=== PATIENT | female | born 1970 | race Two or more races ===

== ENCOUNTER 2019-03-14 11:43 | Emergency (ER) | payer OTHER ==
[2019-03-14 11:47] VITALS: BP 144/97; TEMP 98.7; BMI 26.9
--- NOTE | 2019-03-14 12:08 | PDOC ---
History of Present Illness - General Chief Complaint: Headache Stated Complaint: HEADACHE Time Seen by Provider: 03/14/19 12:07 - History of Present Illness Initial Comments: 03/14/19 14:41 Chief complaint: Headache History of present illness: Patient has a long history of recurrent headaches was have been diagnosed as migraines, she is seen regularly by a neurologist in attendance the headache clinic at [facility]. She has taken her triptan without relief, and states that it is not been working recently. She is under considerable stress from work and her teenage son, and has not been sleeping well, waking up frequently in the middle of the night. She admits anxiety and sometimes feeling depressed, but has had no serious depressions in the past and denies ever having ideations of hurting herself or others. Review of systems: Denies visual or focal neurologic symptoms, unsteadiness of gait, chest pain, shortness of breath, abdominal pain, nausea, vomiting, diarrhea, urinary tract symptoms, vaginal bleeding or discharge. Remainder systems reviewed and negative Past medical history: Migraine headaches. Otherwise negative Social history: Works for the [employer], anxiety, minor depression , work and family stress as noted above. However, fully functional and has been working without interruption Family history: Reviewed and noncontributory including early coronary artery disease, metabolic disease including diabetes, neurologic diseases, and cancer Physical exam: Alert and oriented well-developed well-nourished no acute distress cooperative. Appears moderately anxious and stressed Afebrile, vital signs normal PERRLA, fundi benign with sharp disc margins and good central venous pulsations. ENT clear C2 to 12 intact. Strength full and symmetric. No focal sensory or motor deficits. Cerebellar function intact. Gait stable and unimpaired Neck supple without bruit mass or nodes Chest clear with full breath sounds bilaterally CV regular without murmur rub or gallop pulses full and symmetric no JVD or edema no bruits Abdomen soft nontender without organomegaly or mass Extremities no CCE Skin clear, no rash, adequate turgor and wet mucous membranes Impression: Chronic headache, exacerbated by recent stress, anxiety Plan: Analgesics, counseling, review relaxation techniques, refer back to her neurologist and headache clinic. Past History - Past Medical History Allergies/Adverse Reactions: Allergies Allergy/AdvReac Type Severity Reaction Status Date / Time No Known Allergies Allergy Verified 03/14/19 11:44 Home Medications: Ambulatory Orders Diclofenac Potassium 50 mg PO QID PRN #20 tablet 03/14/19 Naratriptan HCl [Amerge (Nf) -] 2.5 mg PO ASDIR 03/14/19 Nortriptyline HCl [Pamelor -] 10 mg PO HS 03/14/19 hydrOXYzine PAMOATE [Vistaril -] 25 - 50 mg PO QID PRN #20 capsule 03/14/19 COPD: No Other medical history: migraine headaches - Suicide/Smoking/Psychosocial Hx Smoking History: Never smoked Have you smoked in the past 12 months: No Information on smoking cessation initiated: No Hx Alcohol Use: No *Physical Exam - Vital Signs Last Vital Signs Temp Pulse Resp BP Pulse Ox 98.7 F 101 H 18 144/97 100 03/14/19 11:43 03/14/19 11:43 03/14/19 11:43 03/14/19 11:43 03/14/19 11:43 Medical Decision Making - Medical Decision Making 03/14/19 14:47 Patient is much improved with the administration of Toradol and Vistaril. Headache has resolved. She appears much less anxious, states that the tension in the back of her neck has relaxed, and she feels more calm. She will work on combating her stress, investigating relaxation techniques, exercise, meditation , and yogurt. She seems insightful and willing to investigate nonpharmacologic interventions. She agrees to see her neurologist and return to the headache clinic. Return to ER if symptoms worsen. Fully ambulatory and in no significant distress at discharge to follow-up as directed *DC/Admit/Observation/Transfer Diagnosis at time of Disposition: Headache Qualifiers: Headache type: other headache syndrome Qualified Code(s): G44.89 - Other headache syndrome - Discharge Dispostion Disposition: HOME Condition at time of disposition: Improved Decision to Admit order: No - Prescriptions Prescriptions: Diclofenac Potassium 50 mg PO QID PRN #20 tablet PRN Reason: Headache hydrOXYzine PAMOATE [Vistaril -] 25 - 50 mg PO QID PRN #20 capsule PRN Reason: Headache - Referrals Referrals: Remington Cardona MD [Staff Physician] - Mitul Key DO [Staff Physician] - - Patient Instructions Printed Discharge Instructions: DI for Migraine - Post Discharge Activity Forms/Work/School Notes: Back to Work
[2019-03-14] MEDS ORDERED: KETOROLAC TROMETHAMINE 60 MG/2 ML VIAL IM ONE (12:44)
[2019-03-14] MEDS ORDERED: hydrOXYzine PAMOATE 25 MG CAPSULE (FP) PO ONE ×2 (12:44→12:50)
[2019-03-14] MEDS ORDERED: KETOROLAC TROMETHAMINE 60 MG/2 ML VIAL ONE (12:50)
[2019-03-14 15:15] VITALS: PULSE 86
== END 2019-03-14 14:45 | disposition home or self-care (01) ==
LOC: FER 11:43
PROC: 3E0233Z Introduction of Anti-inflammatory into Muscle, Percutaneous Approach (ICD-10-PCS; principal; 2019-03-14)
DX: G44.89 Other headache syndrome (principal); F41.8 Other specified anxiety disorders
CPT/HCPCS: 99282-25

== ENCOUNTER 2024-05-17 18:38 | Emergency (ER) | payer OTHER ==
[2024-05-17 18:48] VITALS: BP 118/86; PULSE 75; RESP 16; TEMP 98.3; BMI 27.9
[2024-05-17] MEDS ORDERED: METOCLOPRAMIDE HCL 10 MG TABLET (FP) PO ONE ×3 (19:39→21:27)
[2024-05-17] MEDS: METOCLOPRAMIDE HCL 10 MG TABLET (FP) PO ONE (19:40)
[2024-05-17] MEDS ORDERED: KETOROLAC TROMETHAMINE 60 MG/2 ML VIAL ONE (20:42)
[2024-05-17] MEDS: KETOROLAC TROMETHAMINE 60 MG/2 ML VIAL IM ONE (20:52)
[2024-05-17] MEDS ORDERED: HYDROmorphone HCL 2 MG TABLET ONE (21:09)
[2024-05-17] MEDS: HYDROmorphone HCL 2 MG TABLET PO ONE (21:21)
== END 2024-05-17 21:34 | disposition home or self-care (01) ==
LOC: FER 18:38
DX: G43.909 Migraine, unspecified, not intractable, without status migrainosus (principal)
CPT/HCPCS: 99283-25